=== PATIENT | male | born 1980 | race Caucasian/White ===

== ENCOUNTER → 2016-10-03 | Outpatient (REF) | payer OTHER ==
[~2016-10-03] MED LIST: ACET50TAOT PO
[2016-10-03 12:21] LABS: BASO # 0.1 K/mm3 (0.0-0.2); BASO % 1.5 % (0.0-1.0); EOS # 0.2 K/mm3 (0.0-0.50); EOS % 2.7 % (0.0-3.0); LYMPH # 1.7 K/mm3 (1.5-4.5); LYMPH % 25.1 % (24.0-44.0); MEAN CORPUSCULAR HEMOGLOBIN 31.6 pg (27.0-33.0); MEAN CORPUSCULAR VOLUME 87.8 fl (80.0-96.0); MONO # 0.5 K/mm3 (0.0-0.8); MONO % 7.8 % (0.0-5.0); NEUTROPHILS # 3.7 K/mm3 (1.8-7.7); NEUTROPHILS % 60.4 % (36.0-66.0); RED CELL DISTRIBUTION WIDTH 12.7 % (11.5-14.5); WHITE BLOOD COUNT 6.1 K/mm3 (4.0-10.0)
[2016-10-03 12:44] LABS: ALBUMIN 3.8 GM/DL (3.2-5.2); ALBUMIN/GLOBULIN RATIO 1.03 (1.00-1.93); ALKALINE PHOSPHATASE 66 U/L (45-117); ALT/SGPT 28 U/L (12-78); ANION GAP 9 MEQ/L (8-16); AST/SGOT 15 U/L (15-37); BILIRUBIN,TOTAL 0.7 MG/DL (0.2-1.0); BLOOD UREA NITROGEN 11 MG/DL (7-18); CALCIUM LEVEL 8.8 MG/DL (8.5-10.1); CARBON DIOXIDE LEVEL 25 MEQ/L (21-32); CHLORIDE LEVEL 106 MEQ/L (98-107); CHOLESTEROL LEVEL 151 MG/DL (<200); CREATININE FOR GFR 0.85 MG/DL (0.70-1.30); GLOMERULAR FILTRATION RATE > 60.0 (>60); GLUCOSE, FASTING 107 MG/DL (70-105); POTASSIUM SERUM 4.2 MEQ/L (3.5-5.1); SODIUM LEVEL 140 MEQ/L (136-145); TOTAL PROTEIN 7.5 GM/DL (6.4-8.2); TRIGLYCERIDES LEVEL 207 MG/DL (<150)
== END ==
LOC: M LABDRAW1 11:36
PROVIDERS: ATTEND Physician Assistant Medical
DX: Z00.00 Encounter for general adult medical examination without abnormal findings (principal)

== ENCOUNTER 2016-11-17 10:42 | Emergency (ER) | payer OTHER ==
[2016-11-17] MEDS ORDERED: LIDOCAINE 2% MDV 20 ML VIAL As Ordered ONE (10:53)
--- NOTE | 2016-11-17 11:43 | EDDOCDS ---
Nurse's Notes [facility] Name: Bijan Montoya Age: 36 yrs Sex: Male : 1980 Arrival Date: 11/17/2016 Time: 10:42 Bed I7 / 29 Private MD: Ranjana Porter C Diagnosis: Cutaneous abscess of buttock-sanjay rectal Presentation: 11/17 10:44 Presenting complaint: Patient states: been to urgent care for a cyst to left buttock. srm symptoms since Sunday. wed started on antibiotic and hydrocodone. not improving. Adult Sepsis Screening: The patient does not have new or worsening altered mentation. Patient's respiratory rate is less than 22. Systolic blood pressure is greater than 100. Patient has a qSOFA score of 0- Negative Sepsis Screen. Suicide/Homicide risk assessment- the patient denies having any suicidal and/or homicidal ideations and does not present with any other emotional, behavioral or mental health complaints. Status: Patient is not a patient financial services manager or dependent. Transition of care: Patient was received from [facility]. 10:44 Acuity: GLORY Level 4 [facility] 10:44 Method Of Arrival: Walkin/Carried/Asstd srm Triage Assessment: 10:47 General: Appears uncomfortable, Behavior is appropriate for age, cooperative. Pain: srm Pain currently is 8 out of 10 on a pain scale. HIV screening NA for this visit Offered previously. Historical: - Allergies: no known allergies; - Home Meds: 1. Bactrim DS 800-160 mg Oral tab 1 tab every 12 hours 2. hydrocodone-acetaminophen 5-325 mg Oral tab prn - PMHx: kidney stones "mild"; - PSHx: Appendectomy; - Social history: Smoking status: Patient states former smoker of tobacco. No barriers to communication noted, The patient speaks fluent Mosotho, Speaks appropriately for age. - Family history: Not pertinent. - : The pt / caregiver states he / she is not on anticoagulants. Home medication list is obtained from the patient. - Exposure Risk Screening:: None identified. Screenin:35 Screening information is obtained from the patient. Fall risk: No risks identified. pml Assistance ADL's: requires no assistance with activities of daily living. Abuse/DV Screen: The patient / caregiver reports he/she is: not in a situation that causes fear, pain or injury. Nutritional screening: No deficits noted. Advance Directives: Currently, there is no health care proxy. home support is adequate. Assessment: 11:35 General: Appears uncomfortable. Pain: Location: gluteal cleft. Neurological: Level of pml Consciousness is awake, alert, Oriented to person, place, time. Cardiovascular: Capillary refill < 3 seconds. Respiratory: Airway is patent Respiratory effort is even, unlabored. GI: Abdomen is non- distended. Derm: Skin is pink, warm & dry. Abscess located on gluteal cleft is quarter sized, has purulent drainage, has foul odor. Vital Signs: 10:43 BP 126 / 77; Pulse 87; Resp 18; Temp 98.7(O); Pulse Ox 97% on R/A; Weight 99.79 kg; dem1 Height 6 ft. 0 in. (182.88 cm); Pain 8/10; 11:40 BP 118 / 64; Pulse 84; Resp 18; Temp 98.4(O); Pulse Ox 96% on R/A; Pain 7/10; nb2 10:43 Body Mass Index 29.84 (99.79 kg, 182.88 cm) [facility] Vitals: 10:43 Log In Time: November 17, 2016 at 10:41. [facility] ED Course: 10:43 Patient visited by Greg Lopes. dem1 10:43 Ranjana Porter is Private Physician. dem1 10:43 Patient moved to Waiting dem1 10:44 Patient moved to Pre RCE dem1 10:46 Triage Initiated srm 10:47 Patient moved to Triage 2 srm 10:48 [facility] cc10 10:48 Rick Cortez MD is Attending Physician. cc10 10:48 Patient visited by Wade Orellana PA-C. cc10 10:48 Patient visited by Wade Orellana PA-C. cc10 10:51 Patient moved to I jb5 11:05 Patient visited by Wade Orellana PA-C. cc10 11:05 Assist provider with I & D: of an abscess on perianal Set up I&D tray. Performed by [facility] Wade Orellana PA-C Patient tolerated well. 11:37 Patient visited by Maria Eugenia Reilly RN. pml 11:37 Bijan Vallejo is Referral Physician. cc10 11:37 [facility] Payment Agreement was scanned into [employer] and attached to record. mm15 11:41 Patient visited by Chica Camp. nb2 11:42 The patient / caregiver is instructed regarding the plan of care and ED course. Patient pml has correct armband on for positive identification. Placed in gown. Bed in low position. Call light in reach. Side rails up X2. 11:42 No IV's were initiated during this patient's visit. pml Administered Medications: 10:58 Drug: Lidocaine 10 ml [lidocaine 20 mg/mL (2 %) injection solution (10 mL)] Route: pml Infiltration; Order Results: There are currently no results for this order. Outcome: 11:37 Discharge ordered by Provider. cc10 11:42 Discharge Assessment: Patient awake, alert and oriented x 3. No cognitive and/or pml functional deficits noted. Patient verbalized understanding of disposition instructions. patient administered narcotics - no. The following High Risk Discharge criteria are identified: None. Discharged to home ambulatory. Condition: good Condition: stable. Discharge instructions given to patient, Instructed on discharge instructions, follow up and referral plans. medication usage, wound care, Demonstrated understanding of instructions, medications, Pt was receptive of discharge instructions/ teaching. Prescriptions given X 1. Work note provided to patient. No special radiology studies were completed. Property sent home with patient. 11:43 Patient left the ED. pml Signatures: Karly Casey, RN RN Sonia Cain, PACK CHANGER PACK CHANGER jb5 Maria Eugenia Reilly RN RN [facility] Greg Lopes1 Kristi Vasquez mm15 Wade Orellana PA-C PA-Marta cc10 Chica Camp nb2 MTDD
--- NOTE | 2016-11-17 11:43 | EDDOCDS ---
Physician Documentation [facility] Name: Bijan Montoya Age: 36 yrs Sex: Male : 1980 Arrival Date: 11/17/2016 Time: 10:42 Bed I7 / 29 Private MD: Ranjana Porter C Disposition: 11/17/16 11:37 Discharged to Home/Self Care. Impression: Cutaneous abscess of buttock - pippa rectal. - Condition is Stable. - Discharge Instructions: Incision and Drainage, Pippa-Rectal Abscess. - Prescriptions for Bactrim DS 800- 160 mg Oral Tablet - take 2 tablet by ORAL route every 12 hours for 7 days; 28 tablet. - Medication Reconciliation, Work Release Form - 4 day form. - Follow up: Emergency Department; When: 1 - 2 days; Reason: Wound/Symptom Recheck, Recheck today's complaints, Continuance of care. Follow up: Bijan Vallejo; When: Call to arrange an appointment; Reason: Wound/Symptom Recheck, Recheck today's complaints, Worsening of conditions, Continuance of care. - Problem is an ongoing problem. - Symptoms have improved. - Notes: Return on Sunday morning for a wound recheck and packing change. Historical: - Allergies: no known allergies; - Home Meds: 1. Bactrim DS 800-160 mg Oral tab 1 tab every 12 hours 2. hydrocodone-acetaminophen 5-325 mg Oral tab prn - PMHx: kidney stones "mild"; - PSHx: Appendectomy; - Social history: Smoking status: Patient states former smoker of tobacco. No barriers to communication noted, The patient speaks fluent Frisian, Speaks appropriately for age. - Family history: Not pertinent. - : The pt / caregiver states he / she is not on anticoagulants. Home medication list is obtained from the patient. - Exposure Risk Screening:: None identified. Vital Signs: 11/17 10:43 BP 126 / 77; Pulse 87; Resp 18; Temp 98.7(O); Pulse Ox 97% on R/A; Weight 99.79 kg / dem1 220 lbs; Height 6 ft. 0 in. (182.88 cm); Pain 8/10; 11:40 BP 118 / 64; Pulse 84; Resp 18; Temp 98.4(O); Pulse Ox 96% on R/A; Pain 7/10; nb2 10:43 Body Mass Index 29.84 (99.79 kg, 182.88 cm) dem1 Procedures: 11:35 I & D: Incision and drainage was performed for an abscess of the perirectal area. cc10 Prepped with Betadine, Anesthetized with 8 ml's 2% Lidocaine. Incised with #15 blade. Drained large amount purulent fluid. Loculations removed. Abscess cavity explored. Packed with iodoform gauze, the patient tolerated the procedure well, Packing change: follow up on Sunday for a wound check and packing change. MDM: 10:52 Lidocaine 20 mg/mL (2 %) 10 ml Infiltration once; to bedside ordered. cc10 11:03 Financial registration complete. mm15 11:37 [facility] Payment Agreement was scanned into [employer] and attached to record. mm15 Administered Medications: 10:58 Drug: Lidocaine 10 ml [lidocaine 20 mg/mL (2 %) injection solution (10 mL)] Route: pml Infiltration; Signatures: Karly Casey RN RN [facility] Maria Eugenia Reilly RN RN [facility] Kristi Vasquez mm15 Wade Orellana PA-C PA-C cc10 The chart was reviewed and I authenticate all verbal orders and agree with the evaluation and treatment provided.Attachments: 11:37 [facility] Payment Agreement mm15 MTDD
--- NOTE | 2016-11-19 12:44 | EDDOCDS ---
Physician Documentation [facility] Name: Bijan Montoya Age: 36 yrs Sex: Male : 1980 Arrival Date: 11/17/2016 Time: 10:42 Bed I7 / 29 Private MD: Ranjana Porter C Disposition: 11/17/16 11:37 Discharged to Home/Self Care. Impression: Cutaneous abscess of buttock - pippa rectal. - Condition is Stable. - Discharge Instructions: Incision and Drainage, Pippa-Rectal Abscess. - Prescriptions for Bactrim DS 800- 160 mg Oral Tablet - take 2 tablet by ORAL route every 12 hours for 7 days; 28 tablet. - Medication Reconciliation, Work Release Form - 4 day form. - Follow up: Emergency Department; When: 1 - 2 days; Reason: Wound/Symptom Recheck, Recheck today's complaints, Continuance of care. Follow up: Bijan Vallejo; When: Call to arrange an appointment; Reason: Wound/Symptom Recheck, Recheck today's complaints, Worsening of conditions, Continuance of care. - Problem is an ongoing problem. - Symptoms have improved. - Notes: Return on Sunday morning for a wound recheck and packing change. Historical: - Allergies: no known allergies; - Home Meds: 1. Bactrim DS 800-160 mg Oral tab 1 tab every 12 hours 2. hydrocodone-acetaminophen 5-325 mg Oral tab prn - PMHx: kidney stones "mild"; - PSHx: Appendectomy; - Social history: Smoking status: Patient states former smoker of tobacco. No barriers to communication noted, The patient speaks fluent Sinhala, Speaks appropriately for age. - Family history: Not pertinent. - : The pt / caregiver states he / she is not on anticoagulants. Home medication list is obtained from the patient. - Exposure Risk Screening:: None identified. Vital Signs: 11/17 10:43 BP 126 / 77; Pulse 87; Resp 18; Temp 98.7(O); Pulse Ox 97% on R/A; Weight 99.79 kg / dem1 220 lbs; Height 6 ft. 0 in. (182.88 cm); Pain 8/10; 11:40 BP 118 / 64; Pulse 84; Resp 18; Temp 98.4(O); Pulse Ox 96% on R/A; Pain 7/10; nb2 10:43 Body Mass Index 29.84 (99.79 kg, 182.88 cm) dem1 Procedures: 11:35 I & D: Incision and drainage was performed for an abscess of the perirectal area. cc10 Prepped with Betadine, Anesthetized with 8 ml's 2% Lidocaine. Incised with #15 blade. Drained large amount purulent fluid. Loculations removed. Abscess cavity explored. Packed with iodoform gauze, the patient tolerated the procedure well, Packing change: follow up on Sunday for a wound check and packing change. MDM: 10:52 Lidocaine 20 mg/mL (2 %) 10 ml Infiltration once; to bedside ordered. cc10 11:03 Financial registration complete. [facility] 11:37 [facility] Payment Agreement was scanned into [employer] and attached to record. mm 17:47 T-Sheet-- Draft Copy was scanned into Whisper and attached to record. klr Administered Medications: 10:58 Drug: Lidocaine 10 ml [lidocaine 20 mg/mL (2 %) injection solution (10 mL)] Route: pml Infiltration; Signatures: Karly Casey, RN RN [facility] Maria Eugenia Reilly RN RN pml Kristi Vasquez 15 Wade Orellana PA-C PASeveriano cc10 Paula Rodriguez klnico The chart was reviewed and I authenticate all verbal orders and agree with the evaluation and treatment provided.Attachments: 11:37 [facility] Payment Agreement 15 17:47 T-Sheet-- Draft Copy klr Chart Complete MTDD
--- NOTE | 2016-11-19 12:44 | EDDOCDS ---
Physician Documentation [facility] Name: Bijan Montoya Age: 36 yrs Sex: Male : 1980 Arrival Date: 11/17/2016 Time: 10:42 Bed I7 / 29 Private MD: Ranjana Porter C Disposition: 11/17/16 11:37 Discharged to Home/Self Care. Impression: Cutaneous abscess of buttock - pippa rectal. - Condition is Stable. - Discharge Instructions: Incision and Drainage, Pippa-Rectal Abscess. - Prescriptions for Bactrim DS 800- 160 mg Oral Tablet - take 2 tablet by ORAL route every 12 hours for 7 days; 28 tablet. - Medication Reconciliation, Work Release Form - 4 day form. - Follow up: Emergency Department; When: 1 - 2 days; Reason: Wound/Symptom Recheck, Recheck today's complaints, Continuance of care. Follow up: Bijan Vallejo; When: Call to arrange an appointment; Reason: Wound/Symptom Recheck, Recheck today's complaints, Worsening of conditions, Continuance of care. - Problem is an ongoing problem. - Symptoms have improved. - Notes: Return on Sunday morning for a wound recheck and packing change. Historical: - Allergies: no known allergies; - Home Meds: 1. Bactrim DS 800-160 mg Oral tab 1 tab every 12 hours 2. hydrocodone-acetaminophen 5-325 mg Oral tab prn - PMHx: kidney stones "mild"; - PSHx: Appendectomy; - Social history: Smoking status: Patient states former smoker of tobacco. No barriers to communication noted, The patient speaks fluent Chinese, Speaks appropriately for age. - Family history: Not pertinent. - : The pt / caregiver states he / she is not on anticoagulants. Home medication list is obtained from the patient. - Exposure Risk Screening:: None identified. Vital Signs: 11/17 10:43 BP 126 / 77; Pulse 87; Resp 18; Temp 98.7(O); Pulse Ox 97% on R/A; Weight 99.79 kg / dem1 220 lbs; Height 6 ft. 0 in. (182.88 cm); Pain 8/10; 11:40 BP 118 / 64; Pulse 84; Resp 18; Temp 98.4(O); Pulse Ox 96% on R/A; Pain 7/10; nb2 10:43 Body Mass Index 29.84 (99.79 kg, 182.88 cm) dem1 Procedures: 11:35 I & D: Incision and drainage was performed for an abscess of the perirectal area. cc10 Prepped with Betadine, Anesthetized with 8 ml's 2% Lidocaine. Incised with #15 blade. Drained large amount purulent fluid. Loculations removed. Abscess cavity explored. Packed with iodoform gauze, the patient tolerated the procedure well, Packing change: follow up on Sunday for a wound check and packing change. MDM: 10:52 Lidocaine 20 mg/mL (2 %) 10 ml Infiltration once; to bedside ordered. cc10 11:03 Financial registration complete. [facility] 11:37 [facility] Payment Agreement was scanned into [employer]$ [employer] and attached to record. mm 17:47 T-Sheet-- Draft Copy was scanned into [employer]$ [employer] and attached to record. klr Administered Medications: 10:58 Drug: Lidocaine 10 ml [lidocaine 20 mg/mL (2 %) injection solution (10 mL)] Route: pml Infiltration; Signatures: Karly Casey, RN RN [facility] Maria Eugenia Reilly RN RN pml Kristi Vasquez 15 Wade Orellana PA-C PASeveriano cc10 Paula Rodriguez klnico The chart was reviewed and I authenticate all verbal orders and agree with the evaluation and treatment provided.Attachments: 11:37 [facility] Payment Agreement 15 17:47 T-Sheet-- Draft Copy klr Chart Complete MTDD
--- NOTE | 2016-11-19 12:44 | EDDOCDS ---
Nurse's Notes [facility] Name: Bijan Montoya Age: 36 yrs Sex: Male : 1980 Arrival Date: 11/17/2016 Time: 10:42 Bed I7 / 29 Private MD: Ranjana Porter C Diagnosis: Cutaneous abscess of buttock-sanjay rectal Presentation: 11/17 10:44 Presenting complaint: Patient states: been to urgent care for a cyst to left buttock. srm symptoms since Sunday. wed started on antibiotic and hydrocodone. not improving. Adult Sepsis Screening: The patient does not have new or worsening altered mentation. Patient's respiratory rate is less than 22. Systolic blood pressure is greater than 100. Patient has a qSOFA score of 0- Negative Sepsis Screen. Suicide/Homicide risk assessment- the patient denies having any suicidal and/or homicidal ideations and does not present with any other emotional, behavioral or mental health complaints. Status: Patient is not a refrigeration service inspector or dependent. Transition of care: Patient was received from [facility]. 10:44 Acuity: GLORY Level 4 [facility] 10:44 Method Of Arrival: Walkin/Carried/Asstd srm Triage Assessment: 10:47 General: Appears uncomfortable, Behavior is appropriate for age, cooperative. Pain: srm Pain currently is 8 out of 10 on a pain scale. HIV screening NA for this visit Offered previously. Historical: - Allergies: no known allergies; - Home Meds: 1. Bactrim DS 800-160 mg Oral tab 1 tab every 12 hours 2. hydrocodone-acetaminophen 5-325 mg Oral tab prn - PMHx: kidney stones "mild"; - PSHx: Appendectomy; - Social history: Smoking status: Patient states former smoker of tobacco. No barriers to communication noted, The patient speaks fluent [place], Speaks appropriately for age. - Family history: Not pertinent. - : The pt / caregiver states he / she is not on anticoagulants. Home medication list is obtained from the patient. - Exposure Risk Screening:: None identified. Screenin:35 Screening information is obtained from the patient. Fall risk: No risks identified. pml Assistance ADL's: requires no assistance with activities of daily living. Abuse/DV Screen: The patient / caregiver reports he/she is: not in a situation that causes fear, pain or injury. Nutritional screening: No deficits noted. Advance Directives: Currently, there is no health care proxy. home support is adequate. Assessment: 11:35 General: Appears uncomfortable. Pain: Location: gluteal cleft. Neurological: Level of pml Consciousness is awake, alert, Oriented to person, place, time. Cardiovascular: Capillary refill < 3 seconds. Respiratory: Airway is patent Respiratory effort is even, unlabored. GI: Abdomen is non- distended. Derm: Skin is pink, warm & dry. Abscess located on gluteal cleft is quarter sized, has purulent drainage, has foul odor. Vital Signs: 10:43 BP 126 / 77; Pulse 87; Resp 18; Temp 98.7(O); Pulse Ox 97% on R/A; Weight 99.79 kg; dem1 Height 6 ft. 0 in. (182.88 cm); Pain 8/10; 11:40 BP 118 / 64; Pulse 84; Resp 18; Temp 98.4(O); Pulse Ox 96% on R/A; Pain 7/10; nb2 10:43 Body Mass Index 29.84 (99.79 kg, 182.88 cm) [facility] Vitals: 10:43 Log In Time: November 17, 2016 at 10:41. [facility] ED Course: 10:43 Patient visited by Greg Lopes. dem1 10:43 Ranjana Porter is Private Physician. dem1 10:43 Patient moved to Waiting dem1 10:44 Patient moved to Pre RCE dem1 10:46 Triage Initiated srm 10:47 Patient moved to Triage 2 srm 10:48 [facility] cc[facility] 10:48 Rick Cortez MD is Attending Physician. cc10 10:48 Patient visited by Wade Orellana PA-C. cc10 10:48 Patient visited by Wade Orellana PA-C. cc10 10:51 Patient moved to I jb5 11:05 Patient visited by Wade Orellana PA-C. cc10 11:05 Assist provider with I & D: of an abscess on perianal Set up I&D tray. Performed by [facility] Wade Orellana PA-C Patient tolerated well. 11:37 Patient visited by Maria Eugenia Reilly RN. pml 11:37 Bijan Vallejo is Referral Physician. cc10 11:37 [facility] Payment Agreement was scanned into [employer] and attached to record. mm15 11:41 Patient visited by Chica Camp. nb2 11:42 The patient / caregiver is instructed regarding the plan of care and ED course. Patient pml has correct armband on for positive identification. Placed in gown. Bed in low position. Call light in reach. Side rails up X2. 11:42 No IV's were initiated during this patient's visit. pml 17:47 T-Sheet-- Draft Copy was scanned into [employer] and attached to record. klr Administered Medications: 10:58 Drug: Lidocaine 10 ml [lidocaine 20 mg/mL (2 %) injection solution (10 mL)] Route: pml Infiltration; Order Results: There are currently no results for this order. Outcome: 11:37 Discharge ordered by Provider. cc10 11:42 Discharge Assessment: Patient awake, alert and oriented x 3. No cognitive and/or pml functional deficits noted. Patient verbalized understanding of disposition instructions. patient administered narcotics - no. The following High Risk Discharge criteria are identified: None. Discharged to home ambulatory. Condition: good Condition: stable. Discharge instructions given to patient, Instructed on discharge instructions, follow up and referral plans. medication usage, wound care, Demonstrated understanding of instructions, medications, Pt was receptive of discharge instructions/ teaching. Prescriptions given X 1. Work note provided to patient. No special radiology studies were completed. Property sent home with patient. 11:43 Patient left the ED. pml Signatures: Karly Casey RN RN [facility] Sonia Simmons, NICOLE FOREIGN LEGAL CONSULTANT jb5 Maria Eugenia Reilly RN RN pml Mack, Demeishia dem1 Kristi Vasquez mm15 Wade Orellana PASeveriano PA-C cc10 Paula Rodriguez r Chica Camp nb2 Chart Complete MTDD
== END 2016-11-17 11:43 | disposition home or self-care (01) ==
LOC: M ED 10:42
DX: K61.1 Rectal abscess (principal); Z87.442 Personal history of urinary calculi; Z87.891 Personal history of nicotine dependence

== ENCOUNTER 2016-11-19 09:44 | Emergency (ER) | payer OTHER ==
--- NOTE | 2016-11-19 10:13 | EDDOCDS ---
Nurse's Notes [facility] Name: Bijan Montoya Age: 36 yrs Sex: Male : 1980 Arrival Date: 11/19/2016 Time: 09:44 Bed I6 / 28 Private MD: Ranjana Porter C Diagnosis: Abscess of anal and rectal regions-recheck Presentation: 11/19 09:48 Presenting complaint: Patient states: Here for a recheck of sanjay-rectal abscess, also dwg for change of packing. Patient feels his symptoms are improving. Adult Sepsis Screening: The patient does not have new or worsening altered mentation. Patient's respiratory rate is less than 22. Systolic blood pressure is greater than 100. Patient has a qSOFA score of 0- Negative Sepsis Screen. Suicide/Homicide risk assessment- the patient denies having any suicidal and/or homicidal ideations and does not present with any other emotional, behavioral or mental health complaints. Status: Patient is not a general service technician or dependent. Transition of care: patient was not received from another setting of care. 09:48 Acuity: GLORY Level 4 dwg 09:48 Method Of Arrival: Walkin/Carried/Asstd dwg Triage Assessment: 09:50 General: Appears in no apparent distress. Pain: Pain currently is 7 out of 10 on a pain dwg scale. HIV screening NA for this visit Offered previously. Historical: - Allergies: no known allergies; - Home Meds: 1. Bactrim DS 800-160 mg Oral tab 1 tab every 12 hours (Last dose: 11/19/2016 08:00) 2. hydrocodone-acetaminophen 5-325 mg Oral tab as needed prn (Last dose: 11/18/2016 23:00) - PMHx: kidney stones "mild"; - PSHx: Appendectomy; - Social history: Smoking status: Patient states former smoker of tobacco. No barriers to communication noted, The patient speaks fluent Hebrew. - Family history: Not pertinent. - : The pt / caregiver states he / she is not on anticoagulants. Home medication list is obtained from the patient. - Exposure Risk Screening:: None identified. Screenin:10 Screening information is obtained from the patient. Fall risk: No risks identified. dy Assistance ADL's: requires no assistance with activities of daily living. Abuse/DV Screen: The patient / caregiver reports he/she is: not in a situation that causes fear, pain or injury. Nutritional screening: No deficits noted. Advance Directives: There is no active DNR order. home support is adequate. Assessment: 10:12 General: Appears in no apparent distress, Behavior is appropriate for age, cooperative. dy General: pt assessed by provider. Vital Signs: 09:45 BP 134 / 78 RA Sitting (auto/reg); Pulse 68; Resp 18; Temp 97.7(O); Pulse Ox 98% on jrd R/A; Weight 99.79 kg (R); Height 6 ft. 0 in. (182.88 cm) (R); Pain 6/10; 09:45 Body Mass Index 29.84 (99.79 kg, 182.88 cm) [facility] Vitals: 09:45 Log In Time: November 19, 2016 at 09:45. [facility] ED Course: 09:45 Patient visited by Bahman Nesbitt PCA. jrd 09:45 Ranjana Porter is Private Physician. jrd 09:45 Patient moved to Waiting jrd 09:48 Patient moved to Pre RCE jrd 09:50 Waed Orellana PA-C is PHCP. cc10 09:50 Jessu Marin MD is Attending Physician. cc10 09:50 Triage Initiated dwg 09:51 Patient moved to Triage 1 dwg 09:52 Patient visited by Wade Orellana PA-C. cc10 09:52 Patient visited by Wade Orellana PA-C. cc10 09:53 Patient moved to I / dwg 10:03 Ranjana Porter is Referral Physician. cc10 10:10 The patient / caregiver is instructed regarding the plan of care and ED course. Patient dy has correct armband on for positive identification. 10:10 No IV's were initiated during this patient's visit. No procedures done that require dy assistance. 10:12 [facility] [place] [place] Payment Agreement was scanned into [employer] and attached to record. jp5 Order Results: There are currently no results for this order. Outcome: 10:03 Discharge ordered by Provider. cc10 10:10 Discharge Assessment: patient administered narcotics - no. The following High Risk dy Discharge criteria are identified: None. Discharged to home ambulatory. Condition: stable. Discharge instructions given to patient, Instructed on discharge instructions, follow up and referral plans. medication usage, no driving heavy equipment, no drinking with medication, Demonstrated understanding of instructions, medications, Pt was receptive of discharge instructions/ teaching. Prescriptions given X 1. No special radiology studies were completed. Property sent home with patient. 10:12 Patient left the ED. parker Signatures: Oracio Saenz RN Wesley Laboy RN RN dy Coniski, Colin, PA-C PA-C cc10 Bahman Nesbitt PCA PCA jrd Price, Jennalee jp5 MTDD
--- NOTE | 2016-11-19 10:13 | EDDOCDS ---
Physician Documentation [facility] Name: Bijan Montoya Age: 36 yrs Sex: Male : 1980 Arrival Date: 11/19/2016 Time: 09:44 Bed I6 / 28 Private MD: Ranjana Porter C Disposition: 11/19/16 10:03 Discharged to Home/Self Care. Impression: Abscess of anal and rectal regions - recheck. - Condition is Stable. - Discharge Instructions: Incision and Drainage, Care After. - Prescriptions for Hydrocodone- Acetaminophen 5-325 mg Oral Tablet - take 1 tablet by ORAL route every 6 hours As needed MDD: 4 tabs; 12 tablet. - Medication Reconciliation form. - Follow up: Ranjana Porter; When: Call to arrange an appointment; Reason: Recheck today's complaints, Continuance of care. - Problem is an ongoing problem. - Symptoms have improved. Historical: - Allergies: no known allergies; - Home Meds: 1. Bactrim DS 800-160 mg Oral tab 1 tab every 12 hours (Last dose: 11/19/2016 08:00) 2. hydrocodone-acetaminophen 5-325 mg Oral tab as needed prn (Last dose: 11/18/2016 23:00) - PMHx: kidney stones "mild"; - PSHx: Appendectomy; - Social history: Smoking status: Patient states former smoker of tobacco. No barriers to communication noted, The patient speaks fluent Latvian. - Family history: Not pertinent. - : The pt / caregiver states he / she is not on anticoagulants. Home medication list is obtained from the patient. - Exposure Risk Screening:: None identified. Vital Signs: 11/19 09:45 BP 134 / 78 RA Sitting (auto/reg); Pulse 68; Resp 18; Temp 97.7(O); Pulse Ox 98% on jrd R/A; Weight 99.79 kg / 220 lbs (R); Height 6 ft. 0 in. (182.88 cm) (R); Pain 6/10; 09:45 Body Mass Index 29.84 (99.79 kg, 182.88 cm) jrd MDM: 09:50 Undress patient appropriately for examination ordered. cc10 10:12 [facility] Payment Agreement was scanned into [employer] and attached to record. jp5 10:12 Financial registration complete. jp5 Signatures: Oracio Saenz, RN RN Wesley Wray, RN RN Wade Argueta, PAHelenaC PA-C cc10 Donald Isabel jp5 The chart was reviewed and I authenticate all verbal orders and agree with the evaluation and treatment provided.Attachments: 10:12 [facility] Payment Agreement jp5 MTDD
--- NOTE | 2016-11-21 11:13 | EDDOCDS ---
Nurse's Notes [facility] Name: Bijan Montoya Age: 36 yrs Sex: Male : 1980 Arrival Date: 11/19/2016 Time: 09:44 Bed I6 / 28 Private MD: Ranjana Porter C Diagnosis: Abscess of anal and rectal regions-recheck Presentation: 11/19 09:48 Presenting complaint: Patient states: Here for a recheck of sanjay-rectal abscess, also dwg for change of packing. Patient feels his symptoms are improving. Adult Sepsis Screening: The patient does not have new or worsening altered mentation. Patient's respiratory rate is less than 22. Systolic blood pressure is greater than 100. Patient has a qSOFA score of 0- Negative Sepsis Screen. Suicide/Homicide risk assessment- the patient denies having any suicidal and/or homicidal ideations and does not present with any other emotional, behavioral or mental health complaints. Status: Patient is not a career services coordinator or dependent. Transition of care: patient was not received from another setting of care. 09:48 Acuity: GLORY Level 4 dwg 09:48 Method Of Arrival: Walkin/Carried/Asstd dwg Triage Assessment: 09:50 General: Appears in no apparent distress. Pain: Pain currently is 7 out of 10 on a pain dwg scale. HIV screening NA for this visit Offered previously. Historical: - Allergies: no known allergies; - Home Meds: 1. Bactrim DS 800-160 mg Oral tab 1 tab every 12 hours (Last dose: 11/19/2016 08:00) 2. hydrocodone-acetaminophen 5-325 mg Oral tab as needed prn (Last dose: 11/18/2016 23:00) - PMHx: kidney stones "mild"; - PSHx: Appendectomy; - Social history: Smoking status: Patient states former smoker of tobacco. No barriers to communication noted, The patient speaks fluent Yi. - Family history: Not pertinent. - : The pt / caregiver states he / she is not on anticoagulants. Home medication list is obtained from the patient. - Exposure Risk Screening:: None identified. Screenin:10 Screening information is obtained from the patient. Fall risk: No risks identified. dy Assistance ADL's: requires no assistance with activities of daily living. Abuse/DV Screen: The patient / caregiver reports he/she is: not in a situation that causes fear, pain or injury. Nutritional screening: No deficits noted. Advance Directives: There is no active DNR order. home support is adequate. Assessment: 10:12 General: Appears in no apparent distress, Behavior is appropriate for age, cooperative. dy General: pt assessed by provider. Vital Signs: 09:45 BP 134 / 78 RA Sitting (auto/reg); Pulse 68; Resp 18; Temp 97.7(O); Pulse Ox 98% on jrd R/A; Weight 99.79 kg (R); Height 6 ft. 0 in. (182.88 cm) (R); Pain 6/10; 09:45 Body Mass Index 29.84 (99.79 kg, 182.88 cm) [facility] Vitals: 09:45 Log In Time: November 19, 2016 at 09:45. [facility] ED Course: 09:45 Patient visited by Bahman Nesbitt PCA. jrd 09:45 Ranjana Porter is Private Physician. jrd 09:45 Patient moved to Waiting jrd 09:48 Patient moved to Pre RCE jrd 09:50 Wade Orellana PA-C is PHCP. cc10 09:50 Jesus Marin MD is Attending Physician. cc10 09:50 Triage Initiated dwg 09:51 Patient moved to Triage 1 dwg 09:52 Patient visited by Wade Orellana PA-C. cc10 09:52 Patient visited by Wade Orellana PA-C. cc10 09:53 Patient moved to I / dwg 10:03 Ranjana Porter is Referral Physician. cc10 10:10 The patient / caregiver is instructed regarding the plan of care and ED course. Patient dy has correct armband on for positive identification. 10:10 No IV's were initiated during this patient's visit. No procedures done that require dy assistance. 10:12 [facility] Payment Agreement was scanned into [employer] and attached to record. jp5 13:36 T-Sheet-- Draft Copy was scanned into [employer] and attached to record. [facility] Order Results: There are currently no results for this order. Outcome: 10:03 Discharge ordered by Provider. cc10 10:10 Discharge Assessment: patient administered narcotics - no. The following High Risk dy Discharge criteria are identified: None. Discharged to home ambulatory. Condition: stable. Discharge instructions given to patient, Instructed on discharge instructions, follow up and referral plans. medication usage, no driving heavy equipment, no drinking with medication, Demonstrated understanding of instructions, medications, Pt was receptive of discharge instructions/ teaching. Prescriptions given X 1. No special radiology studies were completed. Property sent home with patient. 10:12 Patient left the ED. dy Signatures: Oracio Saenz RN Wesley Laboy RN RN dy Coniski, Colin, PA-C PA-C cc10 Bahman Nesbitt, Donald Villalta jp5 Vielka Girard Chart Complete MTDDanya
--- NOTE | 2016-11-21 11:13 | EDDOCDS ---
Physician Documentation [facility] Name: Bijan Montoya Age: 36 yrs Sex: Male : 1980 Arrival Date: 11/19/2016 Time: 09:44 Bed I6 / 28 Private MD: Ranjana Porter C Disposition: 11/19/16 10:03 Discharged to Home/Self Care. Impression: Abscess of anal and rectal regions - recheck. - Condition is Stable. - Discharge Instructions: Incision and Drainage, Care After. - Prescriptions for Hydrocodone- Acetaminophen 5-325 mg Oral Tablet - take 1 tablet by ORAL route every 6 hours As needed MDD: 4 tabs; 12 tablet. - Medication Reconciliation form. - Follow up: Ranjana Porter; When: Call to arrange an appointment; Reason: Recheck today's complaints, Continuance of care. - Problem is an ongoing problem. - Symptoms have improved. Historical: - Allergies: no known allergies; - Home Meds: 1. Bactrim DS 800-160 mg Oral tab 1 tab every 12 hours (Last dose: 11/19/2016 08:00) 2. hydrocodone-acetaminophen 5-325 mg Oral tab as needed prn (Last dose: 11/18/2016 23:00) - PMHx: kidney stones "mild"; - PSHx: Appendectomy; - Social history: Smoking status: Patient states former smoker of tobacco. No barriers to communication noted, The patient speaks fluent Irish. - Family history: Not pertinent. - : The pt / caregiver states he / she is not on anticoagulants. Home medication list is obtained from the patient. - Exposure Risk Screening:: None identified. Vital Signs: 11/19 09:45 BP 134 / 78 RA Sitting (auto/reg); Pulse 68; Resp 18; Temp 97.7(O); Pulse Ox 98% on jrd R/A; Weight 99.79 kg / 220 lbs (R); Height 6 ft. 0 in. (182.88 cm) (R); Pain 6/10; 09:45 Body Mass Index 29.84 (99.79 kg, 182.88 cm) jrd MDM: 09:50 Undress patient appropriately for examination ordered. cc10 10:12 [facility] Payment Agreement was scanned into [employer] Document Management software and attached to record. jp5 10:12 Financial registration complete. jp5 13:36 T-Sheet-- Draft Copy was scanned into [employer] Document Management software and attached to record. [facility] Signatures: Oracio Saenz RN RN dwg Youngs, David, RN RN dy Coniski, Colin, PA-C PA-C cc10 Donald Isabel jp5 Vielka Girard [facility] The chart was reviewed and I authenticate all verbal orders and agree with the evaluation and treatment provided.Attachments: 10:12 [facility] Payment Agreement jp5 13:36 T-Sheet-- Draft Copy [facility] Chart Complete MTDD
--- NOTE | 2016-11-21 11:13 | EDDOCDS ---
Physician Documentation [facility] Name: Bijan Montoay Age: 36 yrs Sex: Male : 1980 Arrival Date: 11/19/2016 Time: 09:44 Bed I6 / 28 Private MD: Ranjana Porter C Disposition: 11/19/16 10:03 Discharged to Home/Self Care. Impression: Abscess of anal and rectal regions - recheck. - Condition is Stable. - Discharge Instructions: Incision and Drainage, Care After. - Prescriptions for Hydrocodone- Acetaminophen 5-325 mg Oral Tablet - take 1 tablet by ORAL route every 6 hours As needed MDD: 4 tabs; 12 tablet. - Medication Reconciliation form. - Follow up: Ranjana Porter; When: Call to arrange an appointment; Reason: Recheck today's complaints, Continuance of care. - Problem is an ongoing problem. - Symptoms have improved. Historical: - Allergies: no known allergies; - Home Meds: 1. Bactrim DS 800-160 mg Oral tab 1 tab every 12 hours (Last dose: 11/19/2016 08:00) 2. hydrocodone-acetaminophen 5-325 mg Oral tab as needed prn (Last dose: 11/18/2016 23:00) - PMHx: kidney stones "mild"; - PSHx: Appendectomy; - Social history: Smoking status: Patient states former smoker of tobacco. No barriers to communication noted, The patient speaks fluent Kiswahili. - Family history: Not pertinent. - : The pt / caregiver states he / she is not on anticoagulants. Home medication list is obtained from the patient. - Exposure Risk Screening:: None identified. Vital Signs: 11/19 09:45 BP 134 / 78 RA Sitting (auto/reg); Pulse 68; Resp 18; Temp 97.7(O); Pulse Ox 98% on jrd R/A; Weight 99.79 kg / 220 lbs (R); Height 6 ft. 0 in. (182.88 cm) (R); Pain 6/10; 09:45 Body Mass Index 29.84 (99.79 kg, 182.88 cm) jrd MDM: 09:50 Undress patient appropriately for examination ordered. cc10 10:12 [facility] Payment Agreement was scanned into [employer] and attached to record. jp5 10:12 Financial registration complete. jp5 13:36 T-Sheet-- Draft Copy was scanned into [employer] and attached to record. [facility] Signatures: Oracio Saenz RN RN dwg Youngs, David, RN RN dy Coniski, Colin, PA-C PA-C cc10 Donald Isabel jp5 Vielka Girard [facility] The chart was reviewed and I authenticate all verbal orders and agree with the evaluation and treatment provided.Attachments: 10:12 COUNTS INCLUDE 234 BEDS AT THE [facility] Payment Agreement jp5 13:36 T-Sheet-- Draft Copy [facility] Chart Complete MTDD
== END 2016-11-19 10:12 | disposition home or self-care (01) ==
LOC: M ED 09:44
DX: K61.1 Rectal abscess (principal); Z87.442 Personal history of urinary calculi; Z87.891 Personal history of nicotine dependence

== ENCOUNTER → 2017-03-13 | Outpatient (CLI) | payer OTHER ==
[2017-03-13 18:18] LABS: ALBUMIN 3.9 GM/DL (3.2-5.2); ALBUMIN/GLOBULIN RATIO 0.98 (1.00-1.93); ALKALINE PHOSPHATASE 77 U/L (45-117); ALT/SGPT 25 U/L (12-78); ANION GAP 6 MEQ/L (8-16); AST/SGOT 9 U/L (15-37); BILIRUBIN,TOTAL 0.3 MG/DL (0.2-1.0); BLOOD UREA NITROGEN 10 MG/DL (7-18); CALCIUM LEVEL 9.3 MG/DL (8.5-10.1); CARBON DIOXIDE LEVEL 27 MEQ/L (21-32); CHLORIDE LEVEL 108 MEQ/L (98-107); CHOLESTEROL LEVEL 169 MG/DL (<200); CREATININE FOR GFR 0.84 MG/DL (0.70-1.30); GLOMERULAR FILTRATION RATE > 60.0 (>60); GLUCOSE, FASTING 86 MG/DL (70-105); POTASSIUM SERUM 3.9 MEQ/L (3.5-5.1); SODIUM LEVEL 141 MEQ/L (136-145); TOTAL PROTEIN 7.9 GM/DL (6.4-8.2); TRIGLYCERIDES LEVEL 270 MG/DL (<150)
== END ==
LOC: M LAB 17:31
PROVIDERS: ATTEND Physician Assistant Medical
DX: E78.2 Mixed hyperlipidemia (principal)

== ENCOUNTER → 2017-06-21 | Outpatient (REF) | payer OTHER ==
[2017-06-21 16:18] LABS: ALBUMIN/GLOBULIN RATIO 1.03 (1.00-1.93); ALKALINE PHOSPHATASE 75 U/L (45-117); ALT/SGPT 31 U/L (12-78); ANION GAP 6 MEQ/L (8-16); AST/SGOT 12 U/L (15-37); BILIRUBIN,TOTAL 0.4 MG/DL (0.2-1.0); BLOOD UREA NITROGEN 14 MG/DL (7-18); CALCIUM LEVEL 9.5 MG/DL (8.5-10.1); CARBON DIOXIDE LEVEL 26 MEQ/L (21-32); CHLORIDE LEVEL 107 MEQ/L (98-107); CHOLESTEROL LEVEL 164 MG/DL (<200); CREATININE FOR GFR 0.75 MG/DL (0.70-1.30); GLOMERULAR FILTRATION RATE > 60.0 (>60); GLUCOSE, FASTING 96 MG/DL (70-105); POTASSIUM SERUM 4.4 MEQ/L (3.5-5.1); SODIUM LEVEL 139 MEQ/L (136-145); TOTAL PROTEIN 7.9 GM/DL (6.4-8.2); TRIGLYCERIDES LEVEL 230 MG/DL (<150)
== END ==
LOC: M LAB REF 15:31
PROVIDERS: ATTEND Physician Assistant Medical
DX: E78.2 Mixed hyperlipidemia (principal)

== ENCOUNTER 2019-08-03 12:16 | Emergency (ER) | payer OTHER ==
[~2019-08-03] VITALS: Ht 182.9 cm; Wt 102.6 kg
[2019-08-03 12:16] VITALS: BP 125/68
[~2019-08-03 12:16] MED LIST changes: +ACET500T15 PO; -ACET50TAOT PO
[2019-08-03 12:44] LABS: BASO # 0.1 10^3/uL (0.0-0.2); BASO % 0.3 % (0.0-1.0); EOS % 0.2 % (0.0-3.0); HEMATOCRIT 48.9 % (42.0-52.0); HEMOGLOBIN 16.7 g/dl (13.5-17.5); LYMPH # 1.3 10^3/uL (1.5-5.0); LYMPH % 8.4 % (24.0-44.0); MEAN CORPUSCULAR HEMOGLOBIN 31.5 pg (27.0-33.0); MEAN CORPUSCULAR HGB CONC 34.2 g/dl (32.0-36.5); MEAN CORPUSCULAR VOLUME 92.3 fl (80.0-96.0); MONO # 0.8 10^3/uL (0.0-0.8); MONO % 5.4 % (0.0-5.0); NEUTROPHILS # 12.8 10^3/uL (1.5-8.5); NEUTROPHILS % 85.3 % (36.0-66.0); PLATELET COUNT, AUTOMATED 231 10^3/uL (150-450)
[2019-08-03 13:08] LABS: ALBUMIN 4.2 GM/DL (3.2-5.2); ALT/SGPT 40 U/L (12-78); BILIRUBIN,DIRECT 0.1 MG/DL (0.0-0.2); BILIRUBIN,TOTAL 0.6 MG/DL (0.2-1.0); BLOOD UREA NITROGEN 13 MG/DL (7-18); CALCIUM LEVEL 9.5 MG/DL (8.5-10.1); CARBON DIOXIDE LEVEL 26 MEQ/L (21-32); CHLORIDE LEVEL 108 MEQ/L (98-107); CREATININE FOR GFR 1.02 MG/DL (0.70-1.30); GLOMERULAR FILTRATION RATE > 60.0 (>60); GLUCOSE, FASTING 132 MG/DL (70-100); LIPASE 117 U/L (73-393); SODIUM LEVEL 140 MEQ/L (136-145); TOTAL PROTEIN 8.5 GM/DL (6.4-8.2)
[2019-08-03] MEDS ORDERED: PERCOCET 5MG/325MG TAB PO ONE (13:15)
[2019-08-03] MEDS ORDERED: ONDANSETRON 4 MG ORAL DISINTEGRATING TAB (Q0162 PER 1MG) PO ONE (13:15)
--- NOTE | 2019-08-03 13:50 | REP ---
CT of the abdomen pelvis without IV or bowel contrast for left flank pain: Comparison is a 07/13/2016. There is a 3 ml calculus in the proximal left ureter at the L 3/L4 level with mild left hydronephrosis. There is no perinephric stranding. No renal calculi are identified on the right on the left. There is no right hydronephrosis. There are no bladder calculi. The visualized lung ruth are unremarkable. The unenhanced hepatic parenchyma, gallbladder, pancreas, spleen and adrenals are unremarkable. The nominal aorta is unremarkable. There is no periaortic adenopathy or mass. The bowel and mesentery are unremarkable. Pelvis: The bladder is unremarkable. There is no ascites or adenopathy. The pelvic bowel loops are unremarkable. Impression: There is a 3 mm calculus in the proximal left ureter at the L3/L4 level with mild left hydronephrosis. Electronically Signed by Oracio Palafox MD 08/03/2019 01:42 P
[2019-08-03] MEDS ORDERED: ONDA4TAB6 PO (14:00)
[2019-08-03] MEDS ORDERED: PERC5TAB12 PO (14:00)
[2019-08-03] MEDS ORDERED: FLOM0.4C39 PO (14:00)
== END 2019-08-03 14:10 | disposition home or self-care (01) ==
LOC: M ED 12:16
DX: N20.1 Calculus of ureter (principal)
CPT/HCPCS: 74176; 80048; 80076; 81001; 83690; 85025; 99284; Q0162

== ENCOUNTER → 2020-02-09 | Outpatient (REF) | payer OTHER ==
[~2020-02-09] MED LIST changes: +FLOM0.4C39 PO; +ONDA4TAB6 PO; +PERC5TAB12 PO
== END ==
LOC: M LAB REF 09:11
PROVIDERS: ATTEND Surgery
DX: Z30.2 Encounter for sterilization (principal)

== ENCOUNTER 2024-01-06 09:27 | Emergency (ER) | payer OTHER ==
[~2024-01-06] VITALS: Ht 182.9 cm; Wt 100.0 kg
[2024-01-06 09:27] VITALS: TEMP 98.5
[2024-01-06] MEDS: PERCOCET 5MG/325MG TAB PO ONE (11:34)
[2024-01-06] MEDS ORDERED: PERC5TAB12 PO (12:06)
[2024-01-06] MEDS ORDERED: MIRA3350 PO (12:06)
[2024-01-06 12:12] VITALS: BP 124/81; O2SAT 99
== END 2024-01-06 12:18 | disposition home or self-care (01) ==
LOC: M ED 09:27
DX: S92.345A Nondisplaced fracture of fourth metatarsal bone, left foot, initial encounter for closed fracture (principal); S92.335A Nondisplaced fracture of third metatarsal bone, left foot, initial encounter for closed fracture; Y92.019 Unspecified place in single-family (private) house as the place of occurrence of the external cause; Y93.9 Activity, unspecified; Y99.9 Unspecified external cause status; Z79.1 Long term (current) use of non-steroidal anti-inflammatories (NSAID); Z79.899 Other long term (current) drug therapy

== ENCOUNTER → 2024-01-16 | Outpatient (CLI) | payer OTHER ==
[~2024-01-16] MED LIST changes: +MIRA3350 PO
== END ==
LOC: M SOG 14:16
PROVIDERS: ATTEND Orthopaedic Surgery
DX: S92.902A Unspecified fracture of left foot, initial encounter for closed fracture (principal); W18.30XA Fall on same level, unspecified, initial encounter; Y92.009 Unspecified place in unspecified non-institutional (private) residence as the place of occurrence of the external cause

== ENCOUNTER → 2024-01-30 | Outpatient (CLI) | payer OTHER | LOC: M SOG 14:00 | PROVIDERS: ATTEND Orthopaedic Surgery | DX: S92.335D Nondisplaced fracture of third metatarsal bone, left foot, subsequent encounter for fracture with routine healing (principal) ==

== ENCOUNTER → 2024-02-13 | Outpatient (CLI) | payer OTHER | LOC: M SOG 07:57 | PROVIDERS: ATTEND Orthopaedic Surgery | DX: S92.345D Nondisplaced fracture of fourth metatarsal bone, left foot, subsequent encounter for fracture with routine healing (principal) ==

== ENCOUNTER → 2024-04-30 | Outpatient (REF) | payer OTHER ==
[~2024-04-30] MED LIST changes: +ONDA-282 PO; -ONDA4TAB6 PO
[2024-04-30 14:16] LABS: ALBUMIN 3.9 G/DL (3.2-5.2); ALKALINE PHOSPHATASE 72 U/L (46-116); ALT/SGPT 25 U/L (7.0-40); AST/SGOT 12 U/L (<34); BILIRUBIN,TOTAL 0.5 MG/DL (0.3-1.2); BLOOD UREA NITROGEN 13 MG/DL (9-23); CALCIUM LEVEL 9.5 MG/DL (8.5-10.1); CARBON DIOXIDE LEVEL 26 MMOL/L (20-31); CHLORIDE LEVEL 110 MMOL/L (98-107); CHOLESTEROL LEVEL 151 MG/DL (<200); CHOLESTEROL RISK RATIO 4.61 (<5); CREATININE FOR GFR 0.62 MG/DL (0.70-1.30); GLOMERULAR FILTRATION RATE > 60.0 (>60); GLUCOSE, FASTING 106 MG/DL (60-100); HDL CHOLESTEROL 32.7 MG/DL (>40); LDL CHOLESTEROL 84.9 MG/DL (<100); NON-HDL-C 118.3 MG/DL; SODIUM LEVEL 140 MMOL/L (136-145); TOTAL PROTEIN 7.5 G/DL (5.7-8.2); TRIGLYCERIDES LEVEL 167 MG/DL (<150)
[2024-04-30 14:19] LABS: THYROID STIMULATING HORMONE 1.234 uIU/ML (0.55-4.78)
== END ==
LOC: M LAB REF 12:33
PROVIDERS: ATTEND Family Medicine Addiction Medicine
DX: Z00.00 Encounter for general adult medical examination without abnormal findings (principal)

== ENCOUNTER 2024-07-25 06:00 | Emergency (ER) | payer OTHER ==
[~2024-07-25] VITALS: Ht 182.9 cm; Wt 99.6 kg
[2024-07-25] MEDS ORDERED: AMOX500C PO (06:52)
[2024-07-25 07:10] VITALS: BP 134/86; TEMP 97.9; O2SAT 96
== END 2024-07-25 07:15 | disposition home or self-care (01) ==
LOC: M ED 06:00
DX: J02.0 Streptococcal pharyngitis (principal); F17.210 Nicotine dependence, cigarettes, uncomplicated; Z79.1 Long term (current) use of non-steroidal anti-inflammatories (NSAID); Z79.2 Long term (current) use of antibiotics; Z79.899 Other long term (current) drug therapy

== ENCOUNTER 2024-08-15 10:13 | Emergency (ER) | payer OTHER ==
[~2024-08-15] VITALS: Ht 182.9 cm; Wt 104.6 kg
[~2024-08-15 10:13] MED LIST changes: +AMOX500C PO
[2024-08-15] MEDS ORDERED: PREDOPD (10:25)
[2024-08-15] MEDS: PROPARACAINE 0.5% OPHTH SOL 15ML OS ONE (12:56)
[2024-08-15] MEDS: FLUORESCEIN OPHTH 1MG STRIP OS ONE (12:56)
[2024-08-15 13:09] VITALS: BP 151/92; TEMP 98.1; O2SAT 97
== END 2024-08-15 13:35 | disposition home or self-care (01) ==
LOC: M ED 10:13
DX: H57.89 Other specified disorders of eye and adnexa (principal); Z79.1 Long term (current) use of non-steroidal anti-inflammatories (NSAID); Z79.2 Long term (current) use of antibiotics; Z79.899 Other long term (current) drug therapy